=== PATIENT | female | born 1975 | race Caucasian/White ===

== ENCOUNTER 2020-04-21 18:14 | Inpatient (IN) | payer SELFPAY ==
[~2020-04-21] VITALS: Ht 162.6 cm; Wt 114.7 kg
[2020-04-21] VITALS (25 sets, daily range): BP systolic 99–139; BP diastolic 37–74; PULSE 82–101; TEMP 98.7–99; O2SAT 94–98
[~2020-04-21 18:14] MED LIST: FLOMAX 0.40.4 MG/CAP PO; LEVAQUIN 750MG750 M1 PO; NO HOME MEDICATIONS; NORCO 325 MG-51 TAB PO; PYRIDIUM 100MG100 MG PO; ULTRAM 50MG TAB50 MG PO; ZOFRAN 4MG T4 MG/TAB PO
--- NOTE | 2020-04-21 19:12 | NUR ---
pt out of unit for surgery.
--- NOTE | 2020-04-21 19:20 | NUR ---
report received from ZOHREH Gibson.
[2020-04-21 21:36] LABS: ALBUMIN 3.7 gm/dL (3.5-5.0); BILIRUBIN,TOTAL 0.7 mg/dL (0.0-1.0); CALCIUM 11.3 mg/dL (8.4-10.2); CREATININE, serum 1.05 (0.52-1.25); POTASSIUM 3.4 mmol/L (3.4-5.0); TOTAL PROTEIN 6.6 gm/dL (6.4-8.2)
--- NOTE | 2020-04-21 21:49 | NUR ---
2010 - REPORT RECEIVED FROM ZOHREH MATHEWS OF PACU. 2014 - PT ARRIVED IN ROOM, ALERT AND ORIENTED X4, ON ROOM AIR, VS WNL, NO COMPLAINTS OF PAIN. PT REQUESTING SANDWICH AND WAS GIVEN 2 BOXES AND PT ATE ALL OF IT. 2050 - ADMISSION IS DONE, ALL SPECIMEN COLLECTED AND MEDICATION REC COMPLETED.
[2020-04-22] VITALS (483 sets, daily range): BP systolic 99–137; BP diastolic 49–72; PULSE 68–91; TEMP 79–99.6; O2SAT 73–100
[2020-04-22 05:20] LABS: HEMATOCRIT 37.1 % (37.0-47.0); HEMOGLOBIN 12.3 g/dl (12.5-16.0); MEAN CELL VOLUME 89 fl (80.0-100.0); MEAN CORPUSCULAR HEMOGLOBIN 29 pg (27.0-31.0); MEAN CORPUSCULAR HGB CONC 33 g/dl (33.0-37.0); MEAN PLATELET VOLUME 9.9 fl (7.4-10.4); PLATELET COUNT 130 K/mm3 (130-400); RED BLOOD COUNT 4.19 M/mm3 (4.10-5.30); REDCELL DISTRIBUTION WIDTH-CV 13.2 % (11.5-14.5)
[2020-04-22 05:32] LABS: ALBUMIN 3.4 gm/dL (3.5-5.0); BILIRUBIN,TOTAL 0.5 mg/dL (0.0-1.0); CALCIUM 11.4 mg/dL (8.4-10.2); CREATININE, serum 1.13 (0.52-1.25); MAGNESIUM 2.1 mg/dL (1.6-2.3); PHOSPHOROUS 0.8 mg/dL (2.5-4.5); POTASSIUM 4.1 mmol/L (3.4-5.0); TOTAL PROTEIN 6.4 gm/dL (6.4-8.2)
[2020-04-22 06:01] LABS: TSH w REFLEX 0.101 uIU/mL (0.465-4.680)
[2020-04-22 06:07] LABS: BAND 6 % (0-10); LYMPHOCYTE 2 % (20.0-51.0); NEUTROPHILS 91 % (42.0-75.2); PLATELET ESTIMATE NORMAL (NORMAL)
--- NOTE | 2020-04-22 09:40 | NUR ---
SW met with the patient to discuss discharge plan. The patient lives in [place] with her [id number] son, Yunior (ph#[phone]), and [id number] son. She reports independence with ADLs and does not have any DME. The patient's primary care provider is ALBA Archer and she receives her medications at [facility] and [facility]. She reports that she is self pay and has some concerns that she may have difficulties affording her meds. Financial Counseling has been consulted. SW provided the patient with an FAA application. The patient does not have a DPOA-HC in EMR, but she states that she does have one completed and at home. She states that her brother, Yong Bowen (ph#[phone]), is her DPOA-HC. The patient plans to return home with her children upon discharge. SW to continue to follow for possible medication assistance.
[2020-04-22 17:45] LABS: PTH,INTACT 251.4 pg/mL (6.6-88.9)
[2020-04-22 19:13] LABS: CALCIUM, IONIZED, SERUM 1.84 mmol/L (1.19-1.41)
[2020-04-23] VITALS (12 sets, daily range): BP systolic 127–156; BP diastolic 61–75; PULSE 80–92; TEMP 98.7–101.3; O2SAT 92–95
[2020-04-23 04:58] LABS: HEMOGLOBIN 11.6 g/dl (12.5-16.0); MEAN CELL VOLUME 89 fl (80.0-100.0); MEAN CORPUSCULAR HEMOGLOBIN 30 pg (27.0-31.0); MEAN CORPUSCULAR HGB CONC 33 g/dl (33.0-37.0); MEAN PLATELET VOLUME 10.3 fl (7.4-10.4); PLATELET COUNT 135 K/mm3 (130-400); REDCELL DISTRIBUTION WIDTH-CV 13.4 % (11.5-14.5)
[2020-04-23 05:09] LABS: HEMATOCRIT 34.7 % (37.0-47.0)
[2020-04-23 05:10] LABS: BILIRUBIN,TOTAL 0.4 mg/dL (0.0-1.0); CALCIUM 11.1 mg/dL (8.4-10.2); CREATININE, serum 1.03 (0.52-1.25); POTASSIUM 3.6 mmol/L (3.4-5.0)
[2020-04-23 05:43] LABS: BAND 1 % (0-10); LYMPHOCYTE 2 % (20.0-51.0); NEUTROPHILS 96 % (42.0-75.2)
[2020-04-23 05:44] LABS: PLATELET ESTIMATE NORMAL (NORMAL)
--- NOTE | 2020-04-23 09:45 | NUR ---
Called medical records for urine culture report from [facility] at 0815. Lab results were faxed but no culture report was provided. Called again at 0945 to lab and they stated that they use a reference lab and it wasn't even sent out unit 04/22/20 so they didn't even have a 24 [address] report yet[address] Dr. Keys and Dr. Heard of report
--- NOTE | 2020-04-23 14:00 | NUR ---
Report called to [facility] at 1315, patient transfered to surgical unit at 1400 via wheelchair with belonings in hand. IV SL.
--- NOTE | 2020-04-23 14:10 | NUR ---
Patient to room via wheel chair from ICU. Patient able to transfer self from wheel chair to bed. Oriented to room. Has minimal pain with movement. Voiding without difficulty. Patient denies any additional needs at this time.
--- NOTE | 2020-04-23 15:20 | NUR ---
Sitting up in bed with eyes open watching TV. Denies pain. Provided water and apple juice. Patient denies further needs.
--- NOTE | 2020-04-23 18:03 | NUR ---
Sitting up in bed watching TV. Denies pain at this time. Says that she would like to shower later on before she goes to bed tonight. Denies any additional needs at this time.
[2020-04-23] MEDS ORDERED: ONCE DAILY1 TA1 PO (20:08)
[2020-04-24 03:46] VITALS: BP 135/70; PULSE 76; TEMP 99.2
--- NOTE | 2020-04-24 06:33 | NUR ---
Pt currently resting in bed. Pt has no complaints of pain at this time. Pt has her call light within reach.
--- NOTE | 2020-04-24 07:07 | NUR ---
Reported off to ZOHREH Preston. Pt is currently sitting up in bed with no comlaints of pain at this time. Pt has her call light within reach.
[2020-04-24 07:22] VITALS: BP 123/58; PULSE 79; TEMP 98.4
[2020-04-24 07:37] LABS: HEMATOCRIT 38.4 % (37.0-47.0); HEMOGLOBIN 12.6 g/dl (12.5-16.0); MEAN CELL VOLUME 89 fl (80.0-100.0); MEAN CORPUSCULAR HEMOGLOBIN 29 pg (27.0-31.0); MEAN CORPUSCULAR HGB CONC 33 g/dl (33.0-37.0); MEAN PLATELET VOLUME 10.3 fl (7.4-10.4); PLATELET COUNT 137 K/mm3 (130-400); REDCELL DISTRIBUTION WIDTH-CV 13.8 % (11.5-14.5)
[2020-04-24 07:58] LABS: ALBUMIN 3.4 gm/dL (3.5-5.0); BILIRUBIN,TOTAL 0.4 mg/dL (0.0-1.0); CALCIUM 11.4 mg/dL (8.4-10.2); CREATININE, serum 0.96 (0.52-1.25); POTASSIUM 3.8 mmol/L (3.4-5.0); TOTAL PROTEIN 6.6 gm/dL (6.4-8.2)
[2020-04-24] MEDS ORDERED: LEVAQUIN 5500 MG/TA1 PO (09:20)
[2020-04-24 09:28] LABS: BAND 12 % (0-10); EOSINOPHIL 1 % (0-4); LYMPHOCYTE 18 % (20.0-51.0); NEUTROPHILS 60 % (42.0-75.2); PLATELET ESTIMATE NORMAL (NORMAL)
--- NOTE | 2020-04-24 10:00 | NUR ---
Patient is discharging home today. Discharge instructions discussed with patient. No questions verbalized. INT discontinued by student nurse. Explained when her follow up is with her primary care doctor. Explained Dr Keys's office will call with appointment. Prescription called in for Levaquin. Copies of discharge instructions given to patient. She is waiting for her ride.
--- NOTE | 2020-04-24 11:30 | NUR ---
Patient has discharged home. Patient ambulated out with Student nurse.
== END 2020-04-24 11:30 | disposition home or self-care (01) | DRG 854 ==
LOC: SDCO 18:14 → ICU 18:24 → SURG 04-23 14:13
PROVIDERS: Hospitalist; Internal Medicine Critical Care Medicine; Nurse Practitioner Family; Physician Assistant; ADMIT Urology
PROC: 0T768DZ Dilation of Right Ureter with Intraluminal Device, Via Natural or Artificial Opening Endoscopic (ICD-10-PCS; principal; 2020-04-21 16:30)
PROC: BT1D1ZZ Fluoroscopy of Right Kidney, Ureter and Bladder using Low Osmolar Contrast (ICD-10-PCS; 2020-04-21 16:30)
DX: A41.9 Sepsis, unspecified organism (principal); N13.6 Pyonephrosis; N17.9 Acute kidney failure, unspecified; R65.20 Severe sepsis without septic shock; E83.52 Hypercalcemia; E87.6 Hypokalemia; R74.0 Nonspecific elevation of levels of transaminase and lactic acid dehydrogenase [LDH]; Z90.49 Acquired absence of other specified parts of digestive tract; Z98.51 Tubal ligation status; E83.39 Other disorders of phosphorus metabolism; E05.80 Other thyrotoxicosis without thyrotoxic crisis or storm; R73.9 Hyperglycemia, unspecified
CPT/HCPCS: 99222; 99232-AI; A4314; A9284; C1769; C2617; J0690; J1100; J2405; J2543; J2704; J3010; J3480; J7030; J7040; J7120; Q9967

== ENCOUNTER 2020-05-08 06:31 | Day surgery (SDC) | payer SELFPAY ==
[~2020-05-08] VITALS: Ht 162.6 cm; Wt 107.0 kg
[~2020-05-08 06:31] MED LIST changes: +LEVAQUIN 5500 MG/TA1 PO; +ONE-A-DAY ESSE1 EACH PO
[2020-05-08 07:38] VITALS: BP 143/75; PULSE 78; TEMP 96
[2020-05-08 08:45] VITALS: BP 136/70; PULSE 66; TEMP 97.3
--- NOTE | 2020-05-08 08:45 | NUR ---
Patient arrives back to [facility] alert, denies pain or nausea. Patient monitor applied, vitals stable. Patient reports she feels great and that back pain is all gone. Patient's mother at bedside. Patient given soda and muffin.
[2020-05-08 09:00] VITALS: PULSE 70
[2020-05-08 09:15] VITALS: BP 133/55; PULSE 68
--- NOTE | 2020-05-08 09:15 | NUR ---
Patient tolerates soda and muffin without any nausea. Vitals stable. Patient reports she feels great and is ready to go home.
--- NOTE | 2020-05-08 09:30 | NUR ---
Dismissal instructions gone over with patient and patient's mother. Both verbalize understanding and all questions answered.
== END 2020-05-08 09:40 | disposition home or self-care (01) ==
LOC: SDCO 06:31
DX: N20.1 Calculus of ureter (principal); Z87.440 Personal history of urinary (tract) infections; Z90.49 Acquired absence of other specified parts of digestive tract; Z90.710 Acquired absence of both cervix and uterus; Z88.8 Allergy status to other drugs, medicaments and biological substances; Z88.3 Allergy status to other anti-infective agents; E21.2 Other hyperparathyroidism; Z91.048 Other nonmedicinal substance allergy status; Z20.828 Contact with and (suspected) exposure to other viral communicable diseases
CPT/HCPCS: C1769; C2617; J0690; J2405; J2704; J3010; J7120

== ENCOUNTER → 2020-08-28 | Outpatient (CLI) | payer BC | LOC: COL.RAD 10:15 | DX: E21.3 Hyperparathyroidism, unspecified (principal) | CPT/HCPCS: A9500 ==